=== PATIENT | male | born 1955 | race Two or more races ===

== ENCOUNTER 2018-04-01 16:42 | Emergency (ER) | payer MEDICAID, OTHER ==
[~2018-04-01] VITALS: Ht 175.3 cm; Wt 81.6 kg
--- NOTE | 2018-04-01 17:20 | NUR ---
Seen and eval by NURIA, orders made. Lab drawn and sent to lab.Urine also sent to lab
[2018-04-01 17:24] LABS: BASOPHILS # (AUTO) 0.1 K/uL (0.0-8.0); BASOPHILS % (AUTO) 0.5 % (0.0-2.0); EOSINOPHILS # (AUTO) 0.1 K/uL (0.0-0.7); EOSINOPHILS % (AUTO) 0.5 % (0.0-7.0); HEMATOCRIT 42.3 % (36.7-47.1); HEMOGLOBIN 14.4 g/dL (12.5-16.3); LYMPHOCYTES # (AUTO) 3.3 K/uL (20.0-40.0); LYMPHOCYTES % (AUTO) 30.4 % (20.5-51.5); MEAN CORPUSCULAR HEMOGLOBIN 30.1 uug (23.8-33.4); MEAN CORPUSCULAR HGB CONC 34 g/dL (32.5-36.3); MEAN CORPUSCULAR VOLUME 88.6 fL (73.0-96.2); MONOCYTES # (AUTO) 0.8 K/uL (2.0-10.0); MONOCYTES % (AUTO) 7.4 % (0.0-11.0); NEUTROPHILS # (AUTO) 6.7 K/uL (1.8-8.9); NEUTROPHILS % (AUTO) 61.2 % (38.5-71.5); PLATELET COUNT (AUTO) 153 K/uL (152-348); RED BLOOD CELL COUNT(AUTO) 4.77 MIL/uL (4.06-5.63); WHITE BLOOD COUNT (AUTO) 10.9 K/uL (3.6-10.2)
[2018-04-01 17:31] LABS: *BILIRUBIN,URIN NEGATIVE (NEGATIVE); *BLOOD, URINE NEGATIVE (NEGATIVE); *CLARITY,URINE CLEAR (CLEAR); *COLOR,URINE YELLOW (YELLOW); *KETONES,URINE NEGATIVE (NEGATIVE); *PROTEIN,URINE NEGATIVE (NEGATIVE); LEUKOCYTE ESTERASE ,URINE NEGATIVE (NEGATIVE); NITRITE, URINE NEGATIVE (NEGATIVE); PH,URINE 8.5 (5.0-8.0); UGLUCOSE NEGATIVE (NEGATIVE)
[2018-04-01 17:32] LABS: CREATININE 1.2 mg/dL (0.6-1.3); POTASSIUM 3.9 mmol/L (3.5-5.1)
[2018-04-01 17:38] LABS: BILIRUBIN,DIRECT 0.1 mg/dL (0.0-0.2); BILIRUBIN,TOTAL 0.4 mg/dL (0.2-1.0); TOTAL PROTEIN, SERUM 7.8 g/dL (6.4-8.2)
[2018-04-01 17:46] LABS: MUCUS,URINE FEW /LPF (0-FEW); WBC,URINE 0-3 /HPF (0-3)
--- NOTE | 2018-04-01 18:01 | NUR ---
Patient discharged to home in stable conditon. Written and verbal after care instructions given. Patient verbalizes understanding of instructions.
== END 2018-04-01 18:01 | disposition home or self-care (01) ==
LOC: ER 16:46
DX: R50.9 Fever, unspecified (principal); I25.2 Old myocardial infarction; K21.9 Gastro-esophageal reflux disease without esophagitis
CPT/HCPCS: 36415; 71045; 83605; 85025; 87040; 87086; A4663

== ENCOUNTER 2022-11-30 20:33 | Emergency (ER) | payer BC, OTHER ==
--- NOTE | 2022-11-30 20:40 | NUR ---
CALLED PATIENT IN THE WAITING ROOM TO TRIAGE, ER is saturated. patient left without being seen by ER physician.
== END 2022-11-30 20:51 | disposition left against medical advice (07) ==
LOC: ER 20:35
DX: Z53.21 Procedure and treatment not carried out due to patient leaving prior to being seen by health care provider (principal)

== ENCOUNTER 2023-04-28 09:39 | Emergency (ER) | payer BC, OTHER ==
[~2023-04-28] VITALS: Ht 175.3 cm; Wt 77.1 kg
[2023-04-28 10:22] LABS: *BILIRUBIN,URIN NEGATIVE (NEGATIVE); *CLARITY,URINE CLEAR (CLEAR); *COLOR,URINE YELLOW (YELLOW); *KETONES,URINE NEGATIVE (NEGATIVE); *PROTEIN,URINE 1+ (NEGATIVE); LEUKOCYTE ESTERASE ,URINE NEGATIVE (NEGATIVE); NITRITE, URINE NEGATIVE (NEGATIVE)
[2023-04-28] MEDS ORDERED: CEFTRIAXONE 1 G in IV DEXTROSE 5% 50 ML IV ONE (10:30)
[2023-04-28] MEDS ORDERED: IV NS 1000 ML 1,000 ML IV ONE (10:30)
[2023-04-28 10:35] LABS: *BLOOD, URINE TRACE (NEGATIVE)
[2023-04-28 10:38] LABS: BASOPHILS % (AUTO) 0.1 % (0.0-2.0); EOSINOPHILS # (AUTO) 0.1 K/uL (0.0-0.7); EOSINOPHILS % (AUTO) 1.5 % (0.0-7.0); HEMATOCRIT 43.8 % (36.7-47.1); HEMOGLOBIN 14.9 g/dL (12.5-16.3); LYMPHOCYTES # (AUTO) 1.3 K/uL (0.8-4.8); LYMPHOCYTES % (AUTO) 14.7 % (20.5-51.5); MEAN CORPUSCULAR HEMOGLOBIN 29.8 uug (23.8-33.4); MEAN CORPUSCULAR HGB CONC 34 g/dL (32.5-36.3); MEAN CORPUSCULAR VOLUME 87.6 fL (73.0-96.2); MONOCYTES # (AUTO) 0.5 K/uL (0.1-1.30); NEUTROPHILS # (AUTO) 6.7 K/uL (1.8-8.9); NEUTROPHILS % (AUTO) 77.7 % (38.5-71.5); PLATELET COUNT (AUTO) 124 K/uL (152-348); RED CELL DISTRIBUTION WIDTH 13.7 % (12.1-16.2); WHITE BLOOD COUNT (AUTO) 8.7 K/uL (3.6-10.2)
[2023-04-28 10:41] LABS: CALCIUM 9.8 mg/dL (8.5-10.1); CARBON DIOXIDE 30 mmol/L (21-32); CHLORIDE 98 mmol/L (98-107); CREATININE 1.3 mg/dL (0.6-1.3); GLUCOSE 151 mg/dL (74-106); POTASSIUM 3.5 mmol/L (3.5-5.1); SODIUM SERUM 135 mmol/L (136-145); UREA NITROGEN, BLOOD 15 mg/dL (7-18)
[2023-04-28 10:47] LABS: RBC,URINE NONE SEEN /HPF (0-3); UGLUCOSE 3+ (NEGATIVE); WBC,URINE NONE SEEN /HPF (0-3)
[2023-04-28 10:49] LABS: DIFFERENTIAL COMMENT 1
[2023-04-28 10:52] LABS: ALANINE AMINOTRANSFERASE 30 U/L (16-63); ALKALINE PHOSPHATASE 80 U/L (50-136); ASPARTATE AMINOTRANSFERASE 27 U/L (15-37); BILIRUBIN,DIRECT 0.2 mg/dL (0.0-0.2); BILIRUBIN,TOTAL 0.6 mg/dL (0.2-1.0); LIPASE 100 U/L (73-393); TOTAL PROTEIN, SERUM 7.5 g/dL (6.4-8.2)
[2023-04-28] MEDS ORDERED: CEFTRIAXONE /D5W 50ML IVPB **ER PYXIS IV ONE (11:08)
[2023-04-28] MEDS ORDERED: DICL100G31 TP (11:40)
[2023-04-28] MEDS ORDERED: EMPA10TA PO (11:40)
[2023-04-28] MEDS ORDERED: CEPH500C2 PO (11:40)
[2023-04-28] MEDS ORDERED: OMEP40CA21 PO (11:40)
[2023-04-28] MEDS ORDERED: FAMO20TA8 PO (11:40)
[2023-04-28] MEDS ORDERED: METF-440 PO (11:40)
[2023-04-28] MEDS ORDERED: TAMS-3 (11:40)
[2023-04-28] MEDS ORDERED: GENTAMICIN SULFATE 20 MG/2 ML VIAL IV ONE ×2 (12:00→12:14)
[2023-04-28] MEDS ORDERED: ACETAMINOPHEN ES 500 MG TABLET PO ONE (12:00)
[2023-04-28] MEDS ORDERED: ACETAMINOPHEN ES 500 MG TABLET ONE (12:14)
[2023-04-28] MEDS ORDERED: GENTAMICIN SULFATE INJ 150 MG in IV DEXTROSE 5% 100 ML IV ONE (13:00)
[2023-04-28] MEDS ORDERED: SULF1TAB48 PO (16:37)
[2023-04-28 16:47] VITALS: O2SAT 99
[2023-04-29 15:08] LABS: FREE PSA 14.7 ng/mL (0.00-45); PROSTATE SPECIFIC ANTIGEN 80.28 ng/mL (0.00-4.00)
== END 2023-04-28 16:52 | disposition home or self-care (01) ==
LOC: ER 09:45
DX: N41.0 Acute prostatitis (principal); I25.2 Old myocardial infarction; K21.9 Gastro-esophageal reflux disease without esophagitis; R07.89 Other chest pain; I25.10 Atherosclerotic heart disease of native coronary artery without angina pectoris; Z79.899 Other long term (current) drug therapy; Z20.822 Contact with and (suspected) exposure to COVID-19
CPT/HCPCS: 99285; 74176; 96365; 71045; 96367; 87426; 87804; 80076; 80048; 81001; 82962; 83880; 83690; 85025; 84153; 87040 ×3; 84484; 36415; 93005 ×2; 83605; J1580 ×2; J0696; J7040; A4663; A9150

== ENCOUNTER 2023-05-02 10:51 | Emergency (ER) | payer OTHER ==
[~2023-05-02] VITALS: Ht 175.3 cm; Wt 77.1 kg
[~2023-05-02 10:51] MED LIST: CEPH500C2 PO; DICL100G31 TP; EMPA10TA PO; FAMO20TA8 PO; METF-440 PO; OMEP40CA21 PO; SULF1TAB48 PO; TAMS-3
[2023-05-02 11:21] VITALS: BP 117/70; TEMP 97.9; O2SAT 98
== END 2023-05-02 11:37 | disposition home or self-care (01) ==
LOC: ER 10:51
DX: N41.9 Inflammatory disease of prostate, unspecified (principal); R97.20 Elevated prostate specific antigen [PSA]; I25.2 Old myocardial infarction; K21.9 Gastro-esophageal reflux disease without esophagitis; Z79.899 Other long term (current) drug therapy
CPT/HCPCS: A4663